=== PATIENT | male | born 1950 | race African-American/Black ===

== ENCOUNTER 2018-03-23 12:54 | Emergency (ER) | payer OTHER ==
[~2018-03-23] VITALS: Ht 172.7 cm; Wt 54.5 kg
[~2018-03-23 12:54] MED LIST: ALBUTEROL SUL0.083 % IN; ASPIRIN325 MG PO; AVELOX400 MG PO; B1 HIGH POTENC100 MG PO; CARDIZEM CD240 MG PO; CIPRO500 MG OR; COMBIVENT IN; COUMADIN5 MG PO; CRESTOR10 MG PO; DIABETA2.5 MG PO; DUONEB INH; GLIPIZIDE5 MG PO; IMDUR30 MG PO; LISINOPRIL20 MG PO; LOSARTAN POTASS25 MG PO; LOVENOX 8080 MG/0.8 SC; MECLIZINE25 MG PO; MEDDOSEPAK OR; METOPROL TAR25 MG OR; METOPROL TAR25 MG PO; NITROSTAT0.4 MG SL; PREDNISONE10 MG PO; PROTONIX40 MG PO; SPIRIVA IN; SYMBICORT 80-4.5MCG IN; VITAMIN D400 UNI1 PO; WARFARIN SODIUM5 MG PO; WARFARIN2.5 MG PO; ZITHROMAX250 MG OR; ZITHROMAX500 MG PO
[2018-03-23] MEDS ORDERED: NOVOLIN N100 UNIT/1 SC (13:08)
[2018-03-23] MEDS ORDERED: PANTOPRAZOLE SO40 MG PO (13:08)
[2018-03-23] MEDS ORDERED: VITAMIN B-12500 MCG PO (13:20)
[2018-03-23] MEDS ORDERED: ATORVASTATIN CA10 MG PO (13:22)
[2018-03-23] MEDS ORDERED: PROVENTIL0.083 % IN (13:25)
[2018-03-23 13:37] LABS: HEMATOCRIT 40.4 % (39.0-50.0); HEMOGLOBIN 12.4 g/dl (14.0-18.0); IMMATURE GRANULOCYTES 0.6 % (0.0-5.0); MEAN CORPUSCULAR HGB 25.2 pG CALC (26.0-32.0); MEAN CORPUSCULAR HGB CONC 30.7 g/L CALC (32.0-36.0); NEUT# 7.87 thou/uL (1.82-7.42); RED BLOOD COUNT 4.93 mill/uL (4.70-6.10); RED CELL DISTRI WIDTH 16.8 % (11.5-15.5)
[2018-03-23 13:56] LABS: ALBUMIN 4.2 g/dL (3.2-5.0); ALKALINE PHOSPHATASE 101 u/l (38-126); ANION GAP 15 (6-22 (CALC)); BILIRUBIN, TOTAL 0.7 mg/dL (0.0-1.4); BUN 5 mg/dL (8-23); BUN/CREATININE RATIO 7 (12-20 (CALC)); CARBON DIOXIDE 29 mmol/l (22-30); CHLORIDE 101 mmol/l (95-108); CREATININE 0.7 mg/dL (0.7-1.3); GFR > 60 ML/MIN (>=60 (CALC)); GFR FOR AFR.AMER. > 60 ML/MIN (>=60 (CALC)); POTASSIUM 4.4 mmol/l (3.5-5.1); SGOT/AST 28 u/l (19-48); SODIUM 140 mmol/l (137-146); TOTAL PROTEIN 8.3 g/dL (6.3-8.2)
[2018-03-23 13:58] LABS: MEAN CELL VOLUME 81.9 fL CALC (80.0-100.0)
[2018-03-23] MEDS ORDERED: MEDDOSEPAK PO (16:49)
[2018-03-23] MEDS ORDERED: ZITHROMAX250 MG PO (16:49)
[2018-03-23 16:52] VITALS: BP 150/74
== END 2018-03-23 17:14 | disposition home or self-care (01) | DRG 192 ==
LOC: ED 12:54
PROVIDERS: Emergency Medicine
DX: J44.1 Chronic obstructive pulmonary disease with (acute) exacerbation (principal); J06.9 Acute upper respiratory infection, unspecified; R06.02 Shortness of breath; I10 Essential (primary) hypertension; R05 Cough

== ENCOUNTER 2019-06-30 10:02 | Inpatient (IN) | payer OTHER, MEDICARE ==
[2019-06-30] VITALS (9 sets, daily range): BP systolic 86–120; BP diastolic 44–75
[~2019-06-30] VITALS: Ht 172.7 cm; Wt 63.5 kg
[~2019-06-30 10:02] MED LIST changes: +ATORVASTATIN CA10 MG PO; +MEDDOSEPAK PO; +NOVOLIN N100 UNIT/1 SC; +PANTOPRAZOLE SO40 MG PO; +PROVENTIL0.083 % IN; +VITAMIN B-12500 MCG PO; +ZITHROMAX250 MG PO
[2019-06-30 10:42] LABS: IMMATURE GRANULOCYTES 0.8 % (0.0-5.0); MEAN CORPUSCULAR HGB 23.6 pG CALC (26.0-32.0); MEAN CORPUSCULAR HGB CONC 30.6 g/L CALC (32.0-36.0); NEUT# 21.3 thou/uL (1.82-7.42); RED BLOOD COUNT 4.33 mill/uL (4.70-6.10); RED CELL DISTRI WIDTH 21.6 % (11.5-15.5)
[2019-06-30 10:43] LABS: HEMATOCRIT 33.3 % (39.0-50.0); HEMOGLOBIN 10.2 g/dl (14.0-18.0); MEAN CELL VOLUME 76.9 fL CALC (80.0-100.0)
[2019-06-30 11:00] LABS: PROTHROMBIN TIME 10.4 SECONDS (9.0-12.5)
[2019-06-30 11:03] LABS: ANION GAP 13 (6-22 (CALC)); BILIRUBIN, TOTAL 0.9 mg/dL (0.0-1.4); BUN 7 mg/dL (8-23); BUN/CREATININE RATIO 10 (12-20 (CALC)); CARBON DIOXIDE 29 mmol/l (22-30); CHLORIDE 97 mmol/l (95-108); CREATININE 0.6 mg/dL (0.7-1.3); GFR > 60 ML/MIN (>=60 (CALC)); GFR FOR AFR.AMER. > 60 ML/MIN (>=60 (CALC)); SGOT/AST 46 u/l (19-48); SODIUM 134 mmol/l (137-146); TOTAL PROTEIN 7.2 g/dL (6.3-8.2)
[2019-06-30 11:15] LABS: ALKALINE PHOSPHATASE 216 u/l (38-126)
[2019-07-01] VITALS (13 sets, daily range): BP systolic 99–139; BP diastolic 56–74
[2019-07-01 06:25] LABS: URINE BILIRUBIN - DIPSTICK NEGATIVE (NEGATIVE); URINE BLOOD DIPSTICK NEGATIVE (NEGATIVE); URINE COLOR YELLOW; URINE GLUCOSE - DIPSTICK 100 mg/dL (NEGATIVE); URINE KETONE NEGATIVE (NEGATIVE); URINE LEUK ESTERASE NEGATIVE (NEGATIVE); URINE NITRITE - DIPSTICK NEGATIVE (Negative); URINE PH 5.5 (4.5-8.0); URINE PROTEIN - DIPSTICK NEGATIVE (NEG-TRACE); URINE SPECIFIC GRAVITY 1.025; URINE UROBILINOGEN - DIPSTICK 0.2 E.U./dL (0.2)
[2019-07-01 06:26] LABS: MEAN CELL VOLUME 78.3 fL CALC (80.0-100.0); MEAN CORPUSCULAR HGB CONC 30.7 g/L CALC (32.0-36.0); RED BLOOD COUNT 3.37 mill/uL (4.70-6.10); RED CELL DISTRI WIDTH 21.6 % (11.5-15.5)
[2019-07-01 06:33] LABS: HEMATOCRIT 26.4 % (39.0-50.0); HEMOGLOBIN 8.1 g/dl (14.0-18.0)
[2019-07-01 06:40] LABS: ANION GAP 8 (6-22 (CALC)); BUN 8 mg/dL (8-23); BUN/CREATININE RATIO 16 (12-20 (CALC)); CARBON DIOXIDE 28 mmol/l (22-30); CHLORIDE 102 mmol/l (95-108); CREATININE 0.5 mg/dL (0.7-1.3); GFR > 60 ML/MIN (>=60 (CALC)); GFR FOR AFR.AMER. > 60 ML/MIN (>=60 (CALC)); POTASSIUM 4.2 mmol/l (3.5-5.1); SODIUM 134 mmol/l (137-146)
[2019-07-02] VITALS (17 sets, daily range): BP systolic 106–135; BP diastolic 57–70
[2019-07-02 04:29] LABS: HEMATOCRIT 25.3 % (39.0-50.0); HEMOGLOBIN 7.7 g/dl (14.0-18.0); MEAN CELL VOLUME 78.1 fL CALC (80.0-100.0); MEAN CORPUSCULAR HGB 23.8 pG CALC (26.0-32.0); MEAN CORPUSCULAR HGB CONC 30.4 g/L CALC (32.0-36.0); RED BLOOD COUNT 3.24 mill/uL (4.70-6.10); RED CELL DISTRI WIDTH 21.7 % (11.5-15.5)
[2019-07-02 04:40] LABS: ANION GAP 4 (6-22 (CALC)); BUN 7 mg/dL (8-23); BUN/CREATININE RATIO 14 (12-20 (CALC)); CARBON DIOXIDE 33 mmol/l (22-30); CHLORIDE 102 mmol/l (95-108); CREATININE 0.5 mg/dL (0.7-1.3); GFR > 60 ML/MIN (>=60 (CALC)); GFR FOR AFR.AMER. > 60 ML/MIN (>=60 (CALC)); POTASSIUM 3.6 mmol/l (3.5-5.1); SODIUM 135 mmol/l (137-146)
[2019-07-03] VITALS (9 sets, daily range): BP systolic 117–153; BP diastolic 59–78
[2019-07-03 05:01] LABS: HEMATOCRIT 26.7 % (39.0-50.0); MEAN CELL VOLUME 78.1 fL CALC (80.0-100.0); MEAN CORPUSCULAR HGB 23.4 pG CALC (26.0-32.0); RED BLOOD COUNT 3.42 mill/uL (4.70-6.10); RED CELL DISTRI WIDTH 21.5 % (11.5-15.5)
[2019-07-03 05:16] LABS: ANION GAP 6 (6-22 (CALC)); BUN 9 mg/dL (8-23); BUN/CREATININE RATIO 14 (12-20 (CALC)); CARBON DIOXIDE 36 mmol/l (22-30); CHLORIDE 99 mmol/l (95-108); CREATININE 0.6 mg/dL (0.7-1.3); GFR > 60 ML/MIN (>=60 (CALC)); GFR FOR AFR.AMER. > 60 ML/MIN (>=60 (CALC)); POTASSIUM 3.9 mmol/l (3.5-5.1); SODIUM 136 mmol/l (137-146)
[2019-07-04] VITALS: BP 128/63
[2019-07-04 02:00] VITALS: BP 121/61
[2019-07-04 04:00] VITALS: BP 133/68
[2019-07-04 06:00] VITALS: BP 140/71
[2019-07-04 08:00] VITALS: BP 144/71
[2019-07-04] MEDS ORDERED: PREDNISONE10 MG PO (08:06)
[2019-07-04] MEDS ORDERED: DOXYCYCL HYC100 MG PO (08:07)
[2019-07-04 09:24] VITALS: BP 140/71
== END 2019-07-04 09:40 | disposition home or self-care (01) | DRG 871 ==
LOC: ED 10:02 → ED-I 10:57 → ED 10:57 → ED-I 11:46 → ICU 12:04 → ED 12:04 → ICU 16:00
PROVIDERS: ADMIT Internal Medicine; ATTEND Internal Medicine
DX: A41.9 Sepsis, unspecified organism (principal); J96.21 Acute and chronic respiratory failure with hypoxia; J44.1 Chronic obstructive pulmonary disease with (acute) exacerbation; I47.2 Ventricular tachycardia; R65.20 Severe sepsis without septic shock; I95.9 Hypotension, unspecified; I10 Essential (primary) hypertension; E11.40 Type 2 diabetes mellitus with diabetic neuropathy, unspecified; F43.10 Post-traumatic stress disorder, unspecified; D50.9 Iron deficiency anemia, unspecified; D63.8 Anemia in other chronic diseases classified elsewhere; R00.0 Tachycardia, unspecified; Z79.4 Long term (current) use of insulin; Z87.891 Personal history of nicotine dependence; Z99.81 Dependence on supplemental oxygen
CPT/HCPCS: J1756; J3370; Q9967

== ENCOUNTER 2020-08-19 | Emergency (ER) | payer OTHER ==
[~2020-08-19] MED LIST changes: +DOXYCYCL HYC100 MG PO
[2020-08-19 10:58] LABS: HEMATOCRIT 27.3 % (39.0-50.0); HEMOGLOBIN 7.6 g/dl (14.0-18.0); IMMATURE GRANULOCYTES 0.4 % (0.0-5.0); MEAN CORPUSCULAR HGB 18.4 pG CALC (26.0-32.0); MEAN CORPUSCULAR HGB CONC 27.8 g/dL CAL (32.0-36.0); NEUT# 11.02 thou/uL (1.82-7.42); RED BLOOD COUNT 4.13 mill/uL (4.70-6.10)
[2020-08-19 11:04] LABS: ALBUMIN 3.4 g/dL (3.2-5.0); ALKALINE PHOSPHATASE 133 u/l (38-126); ANION GAP 11 (6-22 (CALC)); BILIRUBIN, TOTAL 0.6 mg/dL (0.0-1.4); BUN 3 mg/dL (8-23); BUN/CREATININE RATIO 5 (12-20 (CALC)); CARBON DIOXIDE 29 mmol/l (22-30); CHLORIDE 96 mmol/l (95-108); CREATININE 0.6 mg/dL (0.7-1.3); GFR > 60 ML/MIN (>=60 (CALC)); GFR FOR AFR.AMER. > 60 ML/MIN (>=60 (CALC)); SGOT/AST 23 u/l (19-48); SODIUM 133 mmol/l (137-146); TOTAL PROTEIN 7.1 g/dL (6.3-8.2)
[2020-08-19 11:05] LABS: MEAN CELL VOLUME 66.1 fL CALC (80.0-100.0)
[2020-08-19 13:35] LABS: URINE BILIRUBIN - DIPSTICK NEGATIVE (NEGATIVE); URINE BLOOD DIPSTICK NEGATIVE (NEGATIVE); URINE COLOR YELLOW; URINE GLUCOSE - DIPSTICK NEGATIVE (NEGATIVE); URINE KETONE NEGATIVE (NEGATIVE); URINE LEUK ESTERASE NEGATIVE (NEGATIVE); URINE PROTEIN - DIPSTICK NEGATIVE (NEG-TRACE); URINE UROBILINOGEN - DIPSTICK 0.2 E.U./dL (0.2)
[2020-08-19 13:36] LABS: URINE NITRITE - DIPSTICK NEGATIVE (Negative)
== END 2020-08-19 14:26 | disposition short-term general hospital (02) | DRG 439 ==
PROVIDERS: Family Medicine
DX: K85.90 Acute pancreatitis without necrosis or infection, unspecified (principal); J44.1 Chronic obstructive pulmonary disease with (acute) exacerbation; K86.2 Cyst of pancreas; D64.9 Anemia, unspecified; I10 Essential (primary) hypertension; E11.9 Type 2 diabetes mellitus without complications; Z79.84 Long term (current) use of oral hypoglycemic drugs; Z99.81 Dependence on supplemental oxygen; Z20.822 Contact with and (suspected) exposure to COVID-19
CPT/HCPCS: Q9967

== ENCOUNTER 2022-01-03 13:42 | Inpatient (IN) | payer OTHER, MEDICARE ==
[2022-01-03] VITALS (31 sets, daily range): BP systolic 88–127; BP diastolic 49–95
[~2022-01-03] VITALS: Ht 172.7 cm; Wt 55.2 kg
[~2022-01-03 13:42] MED LIST changes: +CARDIZEM LA300 MG PO; -PROVENTIL0.083 % IN; -SPIRIVA IN; +SPIRIVA RE1.25 MCG/A IN; +VENTOLIN HFA108 MCG IN
[2022-01-03 14:17] LABS: IMMATURE GRANULOCYTES 0.8 % (0.0-5.0); MEAN CORPUSCULAR HGB CONC 31.4 g/dL CAL (32.0-36.0); NEUT# 4.85 thou/uL (1.82-7.42); RED BLOOD COUNT 5.16 mill/uL (4.70-6.10)
[2022-01-03 14:18] LABS: HEMATOCRIT 41.1 % (39.0-50.0); HEMOGLOBIN 12.9 g/dl (14.0-18.0); MEAN CELL VOLUME 79.7 fL CALC (80.0-100.0)
[2022-01-03 14:29] LABS: ALKALINE PHOSPHATASE 89 u/l (38-126); BILIRUBIN, TOTAL 0.5 mg/dL (0.0-1.4); CHLORIDE 85 mmol/l (95-108); LIPASE 1957 u/l (23-300)
[2022-01-03 14:47] LABS: ANION GAP 34 (6-22 (CALC)); BUN 41 mg/dL (8-23); BUN/CREATININE RATIO 12 (12-20 (CALC)); CARBON DIOXIDE 13 mmol/l (22-30); CREATININE 3.3 mg/dL (0.7-1.3); GFR FOR AFR.AMER. 22 ML/MIN (>=60 (CALC)); GFR OTHER RACES 19 ML/MIN (>=60 (CALC)); POTASSIUM 5.7 mmol/l (3.5-5.1); SGOT/AST 92 u/l (19-48); SODIUM 126 mmol/l (137-146); TOTAL PROTEIN 5.3 g/dL (6.3-8.2)
[2022-01-03] MEDS ORDERED: POTASSIUM CHLO10 MEQ PO (16:43)
[2022-01-03] MEDS ORDERED: FUROSEMIDE20 MG PO (16:44)
[2022-01-03] MEDS ORDERED: VITAMIN D1000 UNIT PO (16:48)
[2022-01-03 18:30] LABS: CREATININE 2.8 mg/dL (0.7-1.3)
[2022-01-03 18:42] LABS: POTASSIUM 4.5 mmol/l (3.5-5.1)
[2022-01-03 20:37] LABS: URINE BLOOD DIPSTICK MODERATE (NEGATIVE); URINE COLOR YELLOW; URINE GLUCOSE - DIPSTICK >=1000 mg/dL (NEGATIVE); URINE KETONE 15 mg/dL (NEGATIVE); URINE LEUK ESTERASE NEGATIVE (NEGATIVE); URINE PROTEIN - DIPSTICK NEGATIVE (NEG-TRACE); URINE UROBILINOGEN - DIPSTICK 0.2 E.U./dL (0.2)
[2022-01-03 20:45] LABS: URINE BILIRUBIN - DIPSTICK SMALL (NEGATIVE)
[2022-01-03 20:46] LABS: URINE NITRITE - DIPSTICK NEGATIVE (Negative)
[2022-01-03 20:47] LABS: URINE BACTERIA FEW hpf; URINE COARSE GRANULAR CAST FEW lpf; URINE SQUAMOUS EPITHELIAL CELL FEW EPI/hpf (0-FEW)
[2022-01-03 20:50] LABS: CREATININE 2.4 mg/dL (0.7-1.3); POTASSIUM 4.6 mmol/l (3.5-5.1)
[2022-01-03 22:47] LABS: POTASSIUM 4.3 mmol/l (3.5-5.1)
[2022-01-04] VITALS (97 sets, daily range): BP systolic 70–157; BP diastolic 42–129
[2022-01-04 00:54] LABS: CREATININE 1.9 mg/dL (0.7-1.3)
[2022-01-04 03:34] LABS: CREATININE 1.8 mg/dL (0.7-1.3); POTASSIUM 4.1 mmol/l (3.5-5.1)
[2022-01-04 05:17] LABS: CREATININE 1.6 mg/dL (0.7-1.3); POTASSIUM 4.2 mmol/l (3.5-5.1)
[2022-01-04 07:43] LABS: IMMATURE GRANULOCYTES 1.2 % (0.0-5.0); MEAN CELL VOLUME 75.8 fL CALC (80.0-100.0); MEAN CORPUSCULAR HGB 24.5 pG CALC (26.0-32.0); MEAN CORPUSCULAR HGB CONC 32.3 g/dL CAL (32.0-36.0); NEUT# 5.93 thou/uL (1.82-7.42); RED BLOOD COUNT 3.8 mill/uL (4.70-6.10); RED CELL DISTRI WIDTH 18.3 % (11.5-15.5)
[2022-01-04 07:47] LABS: HEMATOCRIT 28.8 % (39.0-50.0); HEMOGLOBIN 9.3 g/dl (14.0-18.0)
[2022-01-04 08:20] LABS: ALBUMIN 2.4 g/dL (3.2-5.0); BILIRUBIN, TOTAL 0.4 mg/dL (0.0-1.4); CREATININE 1.4 mg/dL (0.7-1.3); POTASSIUM 4.2 mmol/l (3.5-5.1); TOTAL PROTEIN 5.1 g/dL (6.3-8.2)
[2022-01-04] MEDS ORDERED: LOSARTAN POTASS25 MG PO (11:39)
[2022-01-04] MEDS ORDERED: WIXELA INHUB 251 AER IN (11:40)
[2022-01-04] MEDS ORDERED: SENNA8.6 MG PO (11:52)
[2022-01-05] VITALS (137 sets, daily range): BP systolic 68–133; BP diastolic 45–81
[2022-01-05 05:21] LABS: HEMATOCRIT 26.9 % (39.0-50.0); HEMOGLOBIN 8.7 g/dl (14.0-18.0); IMMATURE GRANULOCYTES 2.1 % (0.0-5.0); MEAN CELL VOLUME 76.9 fL CALC (80.0-100.0); MEAN CORPUSCULAR HGB 24.9 pG CALC (26.0-32.0); MEAN CORPUSCULAR HGB CONC 32.3 g/dL CAL (32.0-36.0); NEUT# 16.12 thou/uL (1.82-7.42); RED BLOOD COUNT 3.5 mill/uL (4.70-6.10); RED CELL DISTRI WIDTH 19.7 % (11.5-15.5)
[2022-01-05 05:43] LABS: ALBUMIN 2.3 g/dL (3.2-5.0); ALKALINE PHOSPHATASE 71 u/l (38-126); ANION GAP 13 (6-22 (CALC)); BILIRUBIN, TOTAL 0.4 mg/dL (0.0-1.4); BUN 30 mg/dL (8-23); BUN/CREATININE RATIO 29 (12-20 (CALC)); CARBON DIOXIDE 21 mmol/l (22-30); CHLORIDE 113 mmol/l (95-108); CREATININE 1.1 mg/dL (0.7-1.3); GFR FOR AFR.AMER. > 60 ML/MIN (>=60 (CALC)); GFR OTHER RACES > 60 ML/MIN (>=60 (CALC)); POTASSIUM 4.8 mmol/l (3.5-5.1); SGOT/AST 75 u/l (19-48); SODIUM 142 mmol/l (137-146); TOTAL PROTEIN 4.9 g/dL (6.3-8.2)
[2022-01-05 05:54] LABS: C-REACTIVE PROTEIN 26.3 mg/dL (0-0.9)
[2022-01-06] VITALS (48 sets, daily range): BP systolic 88–139; BP diastolic 42–74
[2022-01-06 05:20] LABS: HEMOGLOBIN 7.6 g/dl (14.0-18.0); MEAN CELL VOLUME 78.7 fL CALC (80.0-100.0); MEAN CORPUSCULAR HGB 24.9 pG CALC (26.0-32.0); MEAN CORPUSCULAR HGB CONC 31.7 g/dL CAL (32.0-36.0); RED BLOOD COUNT 3.05 mill/uL (4.70-6.10); RED CELL DISTRI WIDTH 20.6 % (11.5-15.5)
[2022-01-06 05:45] LABS: ALBUMIN 2.1 g/dL (3.2-5.0); BUN 23 mg/dL (8-23); CHLORIDE 110 mmol/l (95-108); GFR FOR AFR.AMER. > 60 ML/MIN (>=60 (CALC)); GFR OTHER RACES > 60 ML/MIN (>=60 (CALC)); MAGNESIUM 1.9 mg/dL (1.6-2.3); SODIUM 141 mmol/l (137-146)
[2022-01-06 05:46] LABS: CARBON DIOXIDE 27 mmol/l (22-30)
[2022-01-07] VITALS (24 sets, daily range): BP systolic 108–145; BP diastolic 53–90
[2022-01-07 06:17] LABS: HEMATOCRIT 23.4 % (39.0-50.0); HEMOGLOBIN 7.3 g/dl (14.0-18.0); MEAN CELL VOLUME 79.9 fL CALC (80.0-100.0); MEAN CORPUSCULAR HGB 24.9 pG CALC (26.0-32.0); MEAN CORPUSCULAR HGB CONC 31.2 g/dL CAL (32.0-36.0); RED BLOOD COUNT 2.93 mill/uL (4.70-6.10); RED CELL DISTRI WIDTH 20.6 % (11.5-15.5)
[2022-01-07 06:29] LABS: ALBUMIN 2.2 g/dL (3.2-5.0); ALKALINE PHOSPHATASE 79 u/l (38-126); ANION GAP 9 (6-22 (CALC)); BILIRUBIN, TOTAL 0.3 mg/dL (0.0-1.4); BUN 33 mg/dL (8-23); BUN/CREATININE RATIO 32 (12-20 (CALC)); CARBON DIOXIDE 27 mmol/l (22-30); CHLORIDE 110 mmol/l (95-108); GFR FOR AFR.AMER. > 60 ML/MIN (>=60 (CALC)); GFR OTHER RACES > 60 ML/MIN (>=60 (CALC)); MAGNESIUM 2.2 mg/dL (1.6-2.3); POTASSIUM 4.2 mmol/l (3.5-5.1); SGOT/AST 24 u/l (19-48); SODIUM 142 mmol/l (137-146); TOTAL PROTEIN 4.8 g/dL (6.3-8.2)
[2022-01-08] VITALS (30 sets, daily range): BP systolic 118–153; BP diastolic 63–104
[2022-01-08 04:07] LABS: BASO% 0 % (0-3); EOS% 0 % (0-8); HEMATOCRIT 21.1 % (39.0-50.0); IMMATURE GRANULOCYTES 1.4 % (0.0-5.0); LYMPH% 2 % (15-41); MEAN CELL VOLUME 80.5 fL CALC (80.0-100.0); MEAN CORPUSCULAR HGB 25.2 pG CALC (26.0-32.0); MEAN CORPUSCULAR HGB CONC 31.3 g/dL CAL (32.0-36.0); MONO% 8 % (2-13); NEUT# 10.42 thou/uL (1.82-7.42); NEUT% 88 % (42-76); PLATELET COUNT 237 thou/uL (130-400); RED BLOOD COUNT 2.62 mill/uL (4.70-6.10); RED CELL DISTRI WIDTH 20.7 % (11.5-15.5)
[2022-01-08 04:21] LABS: ALBUMIN 2.3 g/dL (3.2-5.0); ALKALINE PHOSPHATASE 71 u/l (38-126); BILIRUBIN, TOTAL 0.3 mg/dL (0.0-1.4); BUN 40 mg/dL (8-23); BUN/CREATININE RATIO 44 (12-20 (CALC)); C-REACTIVE PROTEIN 5.3 mg/dL (0-0.9); CHLORIDE 107 mmol/l (95-108); CREATININE 0.9 mg/dL (0.7-1.3); GFR FOR AFR.AMER. > 60 ML/MIN (>=60 (CALC)); GFR OTHER RACES > 60 ML/MIN (>=60 (CALC)); POTASSIUM 3.7 mmol/l (3.5-5.1); SGOT/AST 19 u/l (19-48); SODIUM 146 mmol/l (137-146); TOTAL PROTEIN 4.8 g/dL (6.3-8.2)
[2022-01-08 04:37] LABS: ANION GAP 9 (6-22 (CALC)); CARBON DIOXIDE 34 mmol/l (22-30)
[2022-01-08 04:54] LABS: HEMOGLOBIN 6.6 g/dl (14.0-18.0)
[2022-01-09] VITALS (23 sets, daily range): BP systolic 115–144; BP diastolic 64–95
[2022-01-09 05:35] LABS: MEAN CELL VOLUME 82.1 fL CALC (80.0-100.0); MEAN CORPUSCULAR HGB 25.6 pG CALC (26.0-32.0); MEAN CORPUSCULAR HGB CONC 31.2 g/dL CAL (32.0-36.0); RED BLOOD COUNT 3.75 mill/uL (4.70-6.10)
[2022-01-09 05:49] LABS: ALBUMIN 2.7 g/dL (3.2-5.0); ALKALINE PHOSPHATASE 91 u/l (38-126); ANION GAP 6 (6-22 (CALC)); BILIRUBIN, TOTAL 0.3 mg/dL (0.0-1.4); BUN 39 mg/dL (8-23); BUN/CREATININE RATIO 43 (12-20 (CALC)); CARBON DIOXIDE 39 mmol/l (22-30); CHLORIDE 107 mmol/l (95-108); CREATININE 0.9 mg/dL (0.7-1.3); GFR FOR AFR.AMER. > 60 ML/MIN (>=60 (CALC)); GFR OTHER RACES > 60 ML/MIN (>=60 (CALC)); MAGNESIUM 2.3 mg/dL (1.6-2.3); POTASSIUM 3.7 mmol/l (3.5-5.1); SGOT/AST 25 u/l (19-48); SODIUM 148 mmol/l (137-146); TOTAL PROTEIN 5.5 g/dL (6.3-8.2)
[2022-01-09 05:51] LABS: HEMATOCRIT 30.8 % (39.0-50.0); HEMOGLOBIN 9.6 g/dl (14.0-18.0)
[2022-01-10] VITALS (56 sets, daily range): BP systolic 55–143; BP diastolic 16–86
[2022-01-10 05:33] LABS: HEMATOCRIT 29.3 % (39.0-50.0); HEMOGLOBIN 8.9 g/dl (14.0-18.0); IMMATURE GRANULOCYTES 3.8 % (0.0-5.0); MEAN CELL VOLUME 85.2 fL CALC (80.0-100.0); MEAN CORPUSCULAR HGB 25.9 pG CALC (26.0-32.0); MEAN CORPUSCULAR HGB CONC 30.4 g/dL CAL (32.0-36.0); NEUT# 11.64 thou/uL (1.82-7.42); RED BLOOD COUNT 3.44 mill/uL (4.70-6.10); RED CELL DISTRI WIDTH 19.3 % (11.5-15.5)
[2022-01-10 06:02] LABS: ALBUMIN 2.5 g/dL (3.2-5.0); ALKALINE PHOSPHATASE 89 u/l (38-126); BILIRUBIN, TOTAL 0.4 mg/dL (0.0-1.4); BUN 45 mg/dL (8-23); BUN/CREATININE RATIO 48 (12-20 (CALC)); CHLORIDE 110 mmol/l (95-108); CREATININE 0.9 mg/dL (0.7-1.3); GFR FOR AFR.AMER. > 60 ML/MIN (>=60 (CALC)); GFR OTHER RACES > 60 ML/MIN (>=60 (CALC)); MAGNESIUM 2.3 mg/dL (1.6-2.3); POTASSIUM 3.7 mmol/l (3.5-5.1); SGOT/AST 43 u/l (19-48); SODIUM 150 mmol/l (137-146); TOTAL PROTEIN 5.3 g/dL (6.3-8.2)
[2022-01-10 06:08] LABS: ANION GAP 5 (6-22 (CALC)); CARBON DIOXIDE 39 mmol/l (22-30)
== END 2022-01-10 18:40 | disposition short-term general hospital (02) | DRG 871 ==
LOC: ED 13:42 → ED-I 15:37 → ED 15:37 → ED-I 15:37 → ED 17:04 → ICU 17:05
PROVIDERS: Family Medicine; Internal Medicine; Internal Medicine Nephrology; ADMIT Internal Medicine; ATTEND Internal Medicine
PROC: 0T9B70Z Drainage of Bladder with Drainage Device, Via Natural or Artificial Opening (ICD-10-PCS; principal; 2022-01-04)
PROC: 02HV33Z Insertion of Infusion Device into Superior Vena Cava, Percutaneous Approach (ICD-10-PCS; 2022-01-06)
PROC: 3E0436Z Introduction of Nutritional Substance into Central Vein, Percutaneous Approach (ICD-10-PCS; 2022-01-06)
PROC: 30243N1 Transfusion of Nonautologous Red Blood Cells into Central Vein, Percutaneous Approach (ICD-10-PCS; 2022-01-08)
PROC: 0BH17EZ Insertion of Endotracheal Airway into Trachea, Via Natural or Artificial Opening (ICD-10-PCS; 2022-01-10)
PROC: 5A1935Z Respiratory Ventilation, Less than 24 Consecutive Hours (ICD-10-PCS; 2022-01-10)
PROC: 5A12012 Performance of Cardiac Output, Single, Manual (ICD-10-PCS; 2022-01-10)
PROC: 3E043XZ Introduction of Vasopressor into Central Vein, Percutaneous Approach (ICD-10-PCS; 2022-01-10)
DX: A41.89 Other specified sepsis (principal); U07.1 COVID-19; J12.82 Pneumonia due to coronavirus disease 2019; G93.41 Metabolic encephalopathy; E11.10 Type 2 diabetes mellitus with ketoacidosis without coma; E43 Unspecified severe protein-calorie malnutrition; I46.9 Cardiac arrest, cause unspecified; J96.21 Acute and chronic respiratory failure with hypoxia; K85.90 Acute pancreatitis without necrosis or infection, unspecified; N17.9 Acute kidney failure, unspecified; R64 Cachexia; E87.0 Hyperosmolality and hypernatremia; J43.9 Emphysema, unspecified; D63.8 Anemia in other chronic diseases classified elsewhere; R65.20 Severe sepsis without septic shock; E86.9 Volume depletion, unspecified; I10 Essential (primary) hypertension; E11.40 Type 2 diabetes mellitus with diabetic neuropathy, unspecified; R62.7 Adult failure to thrive; T17.908A Unspecified foreign body in respiratory tract, part unspecified causing other injury, initial encounter; F43.10 Post-traumatic stress disorder, unspecified; I48.0 Paroxysmal atrial fibrillation; Z68.23 Body mass index [BMI] 23.0-23.9, adult; Z79.84 Long term (current) use of oral hypoglycemic drugs; Z87.891 Personal history of nicotine dependence
CPT/HCPCS: J0131; J0692; J1756; J3475; P9016; S0164